=== PATIENT | male | born 1970 | race Caucasian/White ===

== ENCOUNTER 2018-05-16 21:29 | Emergency (ER) | payer MEDICAID ==
[~2018-05-16] VITALS: Ht 185.4 cm; Wt 75.0 kg
--- NOTE | 2018-05-16 22:35 | NUR ---
PT RESTING ON GURNEY. RR EVEN AND UNLABORED. PT ON CONT SPO2 AND BP MONITOR, VSS.
--- NOTE | 2018-05-17 00:56 | NUR ---
NO CHANGE IN PT STATUS. PT RESTING ON GURNEY. RR EVEN AND UNLABORED. PT ON CONT SPO2 AND BP MONITOR
[2018-05-17 01:01] VITALS: BP 100/61
== END 2018-05-17 02:34 | disposition home or self-care (01) ==
LOC: ED 21:43
DX: F10.120 Alcohol abuse with intoxication, uncomplicated (principal)
CPT/HCPCS: 99283

== ENCOUNTER 2018-06-21 13:57 | Inpatient (IN) | payer MEDICAID ==
[~2018-06-21] VITALS: Ht 177.8 cm; Wt 75.8 kg
[~2018-06-21 13:57] MED LIST: ROCURONIUM 10MG/ML,5ML ONE
[2018-06-21 14:24] LABS: BASOPHILS # (AUTO) 0.03 x10^3/uL (0-0.1); BASOPHILS % (AUTO) 1 % (0-1); EOSINOPHILS # (AUTO) 0.17 x10^3/uL (0-0.4); EOSINOPHILS % (AUTO) 4 % (1-7); LYMPHOCYTES # (AUTO) 1.92 x10^3/uL (1-3.4); LYMPHOCYTES % (AUTO) 42 % (22-44); MD NO; MEAN CORPUSCULAR HGB CONC 34.2 g/dL (33.2-36.2); MEAN CORPUSCULAR VOLUME 99.4 fL (81-97); MEAN PLATELET VOLUME 7.4 fL (7.4-10.4); MONOCYTES # (AUTO) 0.52 x10^3/uL (0.2-0.8); MONOCYTES % (AUTO) 11 % (2-9); NEUTROPHILS # (AUTO) 1.97 x10^3/uL (1.8-6.8); NEUTROPHILS % (AUTO) 43 % (42-75); PLATELET COUNT 161 x10^3/uL (130-400); RED BLOOD COUNT 4.54 x10^6/uL (4.38-5.82); RED CELL DISTRIBUTION WIDTH 13.9 % (9.4-14.8)
--- NOTE | 2018-06-21 14:25 | NUR ---
pt bib ems minimally responsive only to pain but able to maintain patent airway. connected to all monitors and etco2. tachy, all other vss. iv established by ems job captain and 1L NS given en route. edmd present upon arrival. 2mg narcan given with no change in responsiveness. nasal airway placed by edmd. all belingings placed in bags, labeled and stored in locker. wallet contained identification card and credit cards, but no crooks. ekg complete. labs drawn. awaiting ct at this time.
[2018-06-21] MEDS ORDERED: SODIUM CHLORIDE 0.9% 1,000ML IVBOLUS ONE (14:30)
[2018-06-21] MEDS ORDERED: NALOXONE 1 MG/ML, 2ML IVPush ONE (14:30)
[2018-06-21 14:33] LABS: INTERNATIONAL NORMALIZED RATIO 1.04 (0.93-1.1); PROTHROMBIN TIME 10.9 Seconds (9.6-11.5)
[2018-06-21 14:35] LABS: ALBUMIN 3.6 g/dL (3.4-5.0); ANION GAP 8 mmol/L (5-15); CALCIUM 7.8 mg/dL (8.5-10.1); CHLORIDE 112 mmol/L (98-107); SALICYLATE LEVEL 3.9 mg/dL (2.8-20.0)
[2018-06-21 14:47] LABS: ALANINE AMINOTRANSFERASE 93 U/L (12-78); ALKALINE PHOSPHATASE 51 U/L (45-117); BILIRUBIN,TOTAL 0.4 mg/dL (0.2-1.0); CREATININE 0.75 mg/dL (0.7-1.3); TOTAL PROTEIN 7.6 g/dL (6.4-8.2)
[2018-06-21 14:50] LABS: ACETAMINOPHEN < 2 mcg/mL (10-30)
[2018-06-21] MEDS ORDERED: MIDAZOLAM 1 MG/ML, 2ML IVPush PRN (15:30)
[2018-06-21] MEDS ORDERED: FENTANYL PF 100 MCG/2ML IVPush PRN ×2 (15:30→17:30)
--- NOTE | 2018-06-21 15:48 | NUR ---
1500 PT MOVED TO TRAUMA ROOM, DR VILLAREAL AT BEDSIDE, 1503 PT GIVEN 100 MG ROCURONIUM. 1508 PT INTUBATED WITH 8.0 ETT 24 AT TEETH. ET 38, 1520 NG PLACED IN LEFT NARE, POSITIVE AUSCULATION, 1525 COULTER CATH PLACED, CLEAR YELLOW URINE. PT ON VENT AC 14 TV 550 PEEP 5 40%. SR PER MONITOR, AUTO BP AND PULSE OX IN PLACE.
--- NOTE | 2018-06-21 15:56 | NUR ---
RT AT BEDSIDE, ETT MOVED TO 21 AT THE LIP.
[2018-06-21] MEDS ORDERED: NALOXONE 1 MG/ML, 2ML ONE (15:58)
[2018-06-21] MEDS ORDERED: ROCURONIUM 10 MG/ML,10ML IVPush ONE (16:00)
--- NOTE | 2018-06-21 16:08 | NUR ---
MELONIE PAWS WARMER IN PLACE.
[2018-06-21 16:12] LABS: AMPHETAMINE SCREEN, URINE Negative (Negative); BARBITURATE SCREEN, URINE Negative (Negative); BENZODIAZEPINE SCREEN, URINE Negative (Negative); CANNABINOID SCREEN, URINE Negative (Negative); COCAINE SCREEN, URINE Negative (Negative); METHADONE SCREEN, URINE Negative (Negative); OPIATE SCREEN, URINE Negative (Negative)
--- NOTE | 2018-06-21 16:16 | NUR ---
PT WITH COPIOUS ORAL SECREATIONS WITH BLOOD NOTED. FREQUENT ORAL SUCTIONING PERFORMED.
[2018-06-21] MEDS ORDERED: MIDAZOLAM 1 MG/ML, 2ML ONE (16:40)
--- NOTE | 2018-06-21 16:43 | NUR ---
PT COUGHING, LIFTING ARMS, PT MEDICATED PER JUN. RT AT BEDSIDE, ETT PLACED AT [address] PER MONITOR, PT DOES NOT FOLLOW COMMANDS, IE: SQUEEZE MY HANDS. NO RESPONSE TO FIRM NAIL BED PRESSURE. PUPILS 5MM SLUGGISH. CONT FREQUENT ORAL SUCTIONING.
[2018-06-21] MEDS ORDERED: FENTANYL PF 100 MCG/2ML ONE (16:50)
--- NOTE | 2018-06-21 17:08 | NUR ---
REPORT CALLED TO PREMA ESCALANTE. POC DISCUSSED.
[2018-06-21 17:15] VITALS: BP 100/68
[2018-06-21] MEDS ORDERED: LACTULOSE 20 GM/30 ML UDC NG PRN (17:30)
[2018-06-21] MEDS ORDERED: GLUCAGON 1 MG IM PRN (17:30)
[2018-06-21] MEDS ORDERED: SENNOSIDES 8.8 MG/5 ML ORAL SOL NG PRN (17:30)
[2018-06-21] MEDS ORDERED: PHARMACY MAY ADJ FOR RENAL FX MC SCH (17:30)
[2018-06-21] MEDS ORDERED: BISACODYL 10 MG SUPP PR PRN (17:30)
[2018-06-21] MEDS ORDERED: SENNA/DOCUSATE TABLET NG PRN (17:30)
[2018-06-21] MEDS ORDERED: DEXTROSE 4 GM TAB.CHEW PO PRN (17:30)
[2018-06-21] MEDS ORDERED: LIDOCAINE-MPF 1%, 2ML ENDO PRN (17:30)
[2018-06-21] MEDS ORDERED: DEXTROSE 50%, 50ML SYRINGE IVPush PRN (17:30)
[2018-06-21] MEDS: PROPOFOL 100 ML IV PRN ×2 (18:13→23:39)
[2018-06-21 18:40] LABS: BASOPHILS # (AUTO) 0.02 x10^3/uL (0-0.1); BASOPHILS % (AUTO) 1 % (0-1); EOSINOPHILS # (AUTO) 0.08 x10^3/uL (0-0.4); EOSINOPHILS % (AUTO) 2 % (1-7); LYMPHOCYTES % (AUTO) 22 % (22-44); MD NO; MEAN CORPUSCULAR HEMOGLOBIN 33.8 pg (27.5-34.5); MEAN CORPUSCULAR VOLUME 99.4 fL (81-97); MEAN PLATELET VOLUME 7.4 fL (7.4-10.4); MONOCYTES # (AUTO) 0.19 x10^3/uL (0.2-0.8); MONOCYTES % (AUTO) 4 % (2-9); NEUTROPHILS # (AUTO) 3.23 x10^3/uL (1.8-6.8); NEUTROPHILS % (AUTO) 71 % (42-75); PLATELET COUNT 164 x10^3/uL (130-400); RED BLOOD COUNT 4.69 x10^6/uL (4.38-5.82); RED CELL DISTRIBUTION WIDTH 14.2 % (9.4-14.8)
[2018-06-21 18:45] LABS: ANION GAP 9 mmol/L (5-15); CALCIUM 7.3 mg/dL (8.5-10.1); CHLORIDE 112 mmol/L (98-107); CREATININE 0.64 mg/dL (0.7-1.3); TRIGLYCERIDES 169 mg/dL (50-200)
[2018-06-21 18:51] LABS: TROPONIN I < 0.015 ng/mL (0.000-0.045)
[2018-06-21] MEDS ORDERED: THIAMINE 200 MG in SODIUM CHLORIDE 0.9% 50 ML IV ONE (19:00)
[2018-06-21] MEDS ORDERED: THIAMINE 200 MG, MVI ADULT 10 ML, FOLIC ACID 1 MG in D5%-0.9% NACL 1,000 ML IV SCH (19:05)
[2018-06-21] MEDS: ALBUTEROL/IPRATROPIUM 2.5MG/0.5MG, 3 ML INLINE SCH ×2 (19:09→22:18)
[2018-06-21] MEDS ORDERED: ENOXAPARIN 40 MG/0.4 ML SQ SCH (19:30)
[2018-06-21] MEDS ORDERED: LORazepam 2 MG/ML, 1ML IVPush PRN (19:30)
[2018-06-21] MEDS ORDERED: ONDANSETRON 2MG/ML, 2ML IVPush PRN (19:30)
[2018-06-21] MEDS: INSULIN LISPRO 100 UNITS/ML, PEN SQ-INSULIN SCH (21:00)
[2018-06-21] MEDS: SODIUM CHLORIDE FLUSH 10ML SYR IVF SCH (21:27)
[2018-06-21 23:36] LABS: TROPONIN I < 0.015 ng/mL (0.000-0.045)
[2018-06-22] MEDS: ALBUTEROL/IPRATROPIUM 2.5MG/0.5MG, 3 ML INLINE SCH (02:38)
[2018-06-22] MEDS: PROPOFOL 100 ML IV PRN (03:47)
[2018-06-22] MEDS ORDERED: THIAMINE 200 MG, MVI ADULT 10 ML, FOLIC ACID 1 MG in D5%-0.9% NACL 1,000 ML IV SCH (04:00)
[2018-06-22 04:31] LABS: BASOPHILS # (AUTO) 0.03 x10^3/uL (0-0.1); BASOPHILS % (AUTO) 1 % (0-1); EOSINOPHILS # (AUTO) 0.02 x10^3/uL (0-0.4); EOSINOPHILS % (AUTO) 1 % (1-7); LYMPHOCYTES # (AUTO) 1.28 x10^3/uL (1-3.4); LYMPHOCYTES % (AUTO) 27 % (22-44); MD NO; MEAN CORPUSCULAR HEMOGLOBIN 33.9 pg (27.5-34.5); MEAN CORPUSCULAR VOLUME 99.5 fL (81-97); MONOCYTES # (AUTO) 0.28 x10^3/uL (0.2-0.8); MONOCYTES % (AUTO) 6 % (2-9); NEUTROPHILS # (AUTO) 3.14 x10^3/uL (1.8-6.8); NEUTROPHILS % (AUTO) 66 % (42-75); PLATELET COUNT 142 x10^3/uL (130-400); RED BLOOD COUNT 4.27 x10^6/uL (4.38-5.82); RED CELL DISTRIBUTION WIDTH 14.2 % (9.4-14.8)
[2018-06-22 04:44] LABS: ALANINE AMINOTRANSFERASE 74 U/L (12-78); ALBUMIN 3.2 g/dL (3.4-5.0); ANION GAP 7 mmol/L (5-15); CALCIUM 7.2 mg/dL (8.5-10.1); CHLORIDE 116 mmol/L (98-107); CREATININE 0.75 mg/dL (0.7-1.3)
[2018-06-22 04:46] LABS: ALKALINE PHOSPHATASE 43 U/L (45-117); BILIRUBIN,TOTAL 0.3 mg/dL (0.2-1.0); TOTAL PROTEIN 6.7 g/dL (6.4-8.2)
[2018-06-22] MEDS: INSULIN LISPRO 100 UNITS/ML, PEN SQ-INSULIN SCH (07:00)
[2018-06-22] MEDS: SODIUM CHLORIDE FLUSH 10ML SYR IVF SCH (09:00)
[2018-06-22] MEDS ORDERED: THIAMINE 100MG TABLET PO SCH (09:00)
[2018-06-22] MEDS ORDERED: PANTOPRAZOLE 40 MG IV IV SCH (09:00)
[2018-06-22 10:47] LABS: MICROSCOPIC NOT IND
[2018-06-22 10:50] LABS: CULTURE INDICATED? NO
== END 2018-06-22 11:41 | disposition home or self-care (01) | DRG 208 ==
LOC: ED 15:08 → SUATTDRO 16:06 → EDIP 16:33 → CSU 17:29
PROVIDERS: ADMIT Internal Medicine; ATTEND Internal Medicine
PROC: 5A1935Z Respiratory Ventilation, Less than 24 Consecutive Hours (ICD-10-PCS; principal; 2018-06-21)
PROC: 0BH17EZ Insertion of Endotracheal Airway into Trachea, Via Natural or Artificial Opening (ICD-10-PCS; 2018-06-21)
DX: J96.00 Acute respiratory failure, unspecified whether with hypoxia or hypercapnia (principal); G93.41 Metabolic encephalopathy; R40.20 Unspecified coma; F10.221 Alcohol dependence with intoxication delirium; E87.1 Hypo-osmolality and hyponatremia; Z99.11 Dependence on respirator [ventilator] status; T68.XXXA Hypothermia, initial encounter; K70.10 Alcoholic hepatitis without ascites; I45.81 Long QT syndrome; J32.0 Chronic maxillary sinusitis; Y90.8 Blood alcohol level of 240 mg/100 ml or more
CPT/HCPCS: 36415; 36600; 51702; 84145; 96361; 99291; J7042; J7620; 70450; 71045; 72125; 80048; 80053; 80307; 80329; 81003; 82140; 82803; 82962; 83605; 83735; 84100; 84478; 84484; 85025; 85610; 87040; 87070; 87077; 87081; 87181; 87184; 87205; 93005; 94002; 94640; 96374; 96375; G0378; J1650; J2250; J2704; J3010; J3411; G0480; J2310; J7030

== ENCOUNTER 2018-07-16 12:54 | Emergency (ER) | payer MEDICAID ==
[~2018-07-16] VITALS: Ht 180.3 cm; Wt 75.0 kg
[2018-07-16] MEDS ORDERED: SODIUM CHLORIDE 0.9% 1,000 ML IV ONE (13:22)
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
[2018-07-16 13:50] LABS: BASOPHILS # (AUTO) 0.05 x10^3/uL (0-0.1); BASOPHILS % (AUTO) 1 % (0-1); EOSINOPHILS # (AUTO) 0.13 x10^3/uL (0-0.4); EOSINOPHILS % (AUTO) 2 % (1-7); LYMPHOCYTES # (AUTO) 1.55 x10^3/uL (1-3.4); LYMPHOCYTES % (AUTO) 28 % (22-44); MD NO; MEAN CORPUSCULAR HEMOGLOBIN 33.5 pg (27.5-34.5); MEAN CORPUSCULAR HGB CONC 34.1 g/dL (33.2-36.2); MEAN CORPUSCULAR VOLUME 98.5 fL (81-97); MEAN PLATELET VOLUME 9.3 fL (7.4-10.4); MONOCYTES # (AUTO) 0.18 x10^3/uL (0.2-0.8); MONOCYTES % (AUTO) 3 % (2-9); NEUTROPHILS # (AUTO) 3.58 x10^3/uL (1.8-6.8); NEUTROPHILS % (AUTO) 65 % (42-75); PLATELET COUNT 160 x10^3/uL (130-400); RED BLOOD COUNT 5.21 x10^6/uL (4.38-5.82); RED CELL DISTRIBUTION WIDTH 13.3 % (9.4-14.8)
[2018-07-16 14:04] LABS: ALBUMIN 3.9 g/dL (3.4-5.0); ANION GAP 7 mmol/L (5-15); CHLORIDE 110 mmol/L (98-107)
[2018-07-16 14:10] LABS: ALANINE AMINOTRANSFERASE 43 U/L (12-78); ALKALINE PHOSPHATASE 63 U/L (45-117); BILIRUBIN,TOTAL 0.3 mg/dL (0.2-1.0); CREATININE 0.87 mg/dL (0.7-1.3); SALICYLATE LEVEL 3.8 mg/dL (2.8-20.0); TOTAL PROTEIN 7.9 g/dL (6.4-8.2)
[2018-07-16 14:11] LABS: ACETAMINOPHEN < 2 mcg/mL (10-30)
--- NOTE | 2018-07-16 15:30 | NUR ---
PT SLEEPING AWAKES TO PAINFUL STIMULI, CONT TO MONITOR O2 AND SUPPLMENT OXYGEN NEEDED
--- NOTE | 2018-07-16 16:57 | NUR ---
PT AWAKES TO VOICE STILL SEDATED BUT MORE AROUSABLE MOVED TO RM 17, REPORT GIVEN TO DENISE
--- NOTE | 2018-07-16 17:45 | NUR ---
REPORT RECEIVED FROM RN JACK, PT SLEEPING ON GURNEY, RESPS EVEN AND UNLABORED. VSS.
--- NOTE | 2018-07-16 18:23 | NUR ---
PT AWAKENS TO VOICE, SPEECH SLURRED. PT ORIENTED TO SELF. RESPS EVEN AND UNLABORED. 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 BED LOCKED AND IN LOWEST POSITION, CALL LIGHT IN REACH. PT INSTRUCTED REGARDING CALL LIGHT USE, PT INSTRUCTED NOT TO GET OUT OF BED. URINAL AT BEDSIDE.
--- NOTE | 2018-07-16 19:02 | NUR ---
REPORT TO BORIS CABRALES AND BORIS HOANG AT BEDSIDE. PT HAD URINATED ON FLOOR, DESPITE URINAL GIVEN. ALL MONITORS TAKEN OFF BY PT, REPLACED. PT AWAKE, ALERT, RESPS EVEN AND UNLABORED.
--- NOTE | 2018-07-16 19:46 | NUR ---
PT SLEEPING. VSS.
--- NOTE | 2018-07-16 20:59 | NUR ---
PT AROUSES TO VOICE. ALERT TO SELF. VSS.
[2018-07-17 00:12] VITALS: BP 122/75
== END 2018-07-17 01:15 | disposition home or self-care (01) ==
LOC: ED 14:18
DX: F10.220 Alcohol dependence with intoxication, uncomplicated (principal); G92 Toxic encephalopathy; R41.82 Altered mental status, unspecified
CPT/HCPCS: 36415; 70450; 80053; 80307; 80329; 82140; 83735; 85025; 93005; 96360; 96361; 99291; J7030; G0480

== ENCOUNTER 2018-07-26 00:03 | Emergency (ER) | payer MEDICAID ==
[~2018-07-26] VITALS: Ht 180.3 cm; Wt 75.0 kg
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
--- NOTE | 2018-07-26 00:56 | NUR ---
PT TO CT
[2018-07-26 01:44] VITALS: BP 108/58
--- NOTE | 2018-07-26 01:45 | NUR ---
PT RESTING CALMLY, MONITORS IN PLACE,DENIES NEEDS, CALL LIGHT WITHIN REACH. CHART UP FOR RECHECK
== END 2018-07-26 02:20 | disposition home or self-care (01) ==
LOC: ED 00:33
DX: G89.11 Acute pain due to trauma (principal); R51 Headache; F10.10 Alcohol abuse, uncomplicated; Z72.9 Problem related to lifestyle, unspecified; F17.210 Nicotine dependence, cigarettes, uncomplicated; Y04.8XXA Assault by other bodily force, initial encounter; Y93.89 Activity, other specified; Y92.410 Unspecified street and highway as the place of occurrence of the external cause; Y99.8 Other external cause status
CPT/HCPCS: 70450; 70486; 99284

== ENCOUNTER 2018-10-20 01:10 | Emergency (ER) | payer SELFPAY ==
[~2018-10-20] VITALS: Ht 180.3 cm; Wt 73.9 kg
--- NOTE | 2018-10-20 01:33 | NUR ---
DR DAY AT BEDSIDE. PT ASSESSMENT POC, DISCUSSED AND QUESTIONS ANSWERED.
[2018-10-20] MEDS ORDERED: FAMOTIDINE 20 MG TABLET ONE (01:42)
[2018-10-20] MEDS ORDERED: NAPROXEN 500 MG TABLET ONE (01:43)
[2018-10-20 01:56] VITALS: BP 105/62
[2018-10-20] MEDS ORDERED: NAPROXEN 500 MG TABLET PO ONE (02:00)
[2018-10-20] MEDS ORDERED: FAMOTIDINE 20 MG TABLET PO ONE (02:00)
--- NOTE | 2018-10-20 02:07 | NUR ---
Patient/Caregiver given discharge instructions and they have confirmed that they understand the instructions. Patient ambulatory with steady gait. PAIN 09/14
== END 2018-10-20 02:08 | disposition home or self-care (01) ==
LOC: ED 01:38
DX: M70.22 Olecranon bursitis, left elbow (principal); F17.200 Nicotine dependence, unspecified, uncomplicated; R07.81 Pleurodynia; Z72.89 Other problems related to lifestyle
CPT/HCPCS: 99283

== ENCOUNTER 2018-10-31 18:55 | Inpatient (IN) | payer MEDICAID ==
[~2018-10-31] VITALS: Ht 177.8 cm; Wt 73.5 kg
[2018-11-20 15:23] VITALS: BP 119/78
== END 2018-11-20 19:30 | disposition home or self-care (01) | DRG 207 ==
LOC: EDBD 18:55 → MERGE 18:55 → ED 21:50 → EDIP 21:51 → CCU 22:44 → 4EST 11-13 16:08
PROVIDERS: ADMIT Family Medicine; ATTEND Internal Medicine
PROC: 5A1955Z Respiratory Ventilation, Greater than 96 Consecutive Hours (ICD-10-PCS; 2018-10-31)
PROC: 04HY32Z Insertion of Monitoring Device into Lower Artery, Percutaneous Approach (ICD-10-PCS; 2018-10-31)
PROC: 0BH17EZ Insertion of Endotracheal Airway into Trachea, Via Natural or Artificial Opening (ICD-10-PCS; 2018-10-31)
PROC: 5A1D70Z Performance of Urinary Filtration, Intermittent, Less than 6 Hours Per Day (ICD-10-PCS; principal; 2018-11-04)
PROC: 02HV33Z Insertion of Infusion Device into Superior Vena Cava, Percutaneous Approach (ICD-10-PCS; 2018-11-04)
PROC: B548ZZA Ultrasonography of Superior Vena Cava, Guidance (ICD-10-PCS; 2018-11-04)
PROC: 5A1D70Z Performance of Urinary Filtration, Intermittent, Less than 6 Hours Per Day (ICD-10-PCS; 2018-11-05)
PROC: 5A1D70Z Performance of Urinary Filtration, Intermittent, Less than 6 Hours Per Day (ICD-10-PCS; 2018-11-06)
PROC: 5A1D70Z Performance of Urinary Filtration, Intermittent, Less than 6 Hours Per Day (ICD-10-PCS; 2018-11-09)
PROC: 5A1D70Z Performance of Urinary Filtration, Intermittent, Less than 6 Hours Per Day (ICD-10-PCS; 2018-11-10)
PROC: 5A1D70Z Performance of Urinary Filtration, Intermittent, Less than 6 Hours Per Day (ICD-10-PCS; 2018-11-11)
PROC: 5A1D70Z Performance of Urinary Filtration, Intermittent, Less than 6 Hours Per Day (ICD-10-PCS; 2018-11-13)
PROC: 5A1D70Z Performance of Urinary Filtration, Intermittent, Less than 6 Hours Per Day (ICD-10-PCS; 2018-11-14)
PROC: 5A1D70Z Performance of Urinary Filtration, Intermittent, Less than 6 Hours Per Day (ICD-10-PCS; 2018-11-16)
PROC: 5A1D70Z Performance of Urinary Filtration, Intermittent, Less than 6 Hours Per Day (ICD-10-PCS; 2018-11-17)
PROC: 02HV33Z Insertion of Infusion Device into Superior Vena Cava, Percutaneous Approach (ICD-10-PCS; 2018-11-18)
PROC: B5181ZA Fluoroscopy of Superior Vena Cava using Low Osmolar Contrast, Guidance (ICD-10-PCS; 2018-11-18)
PROC: B548ZZA Ultrasonography of Superior Vena Cava, Guidance (ICD-10-PCS; 2018-11-18)
PROC: 5A1D70Z Performance of Urinary Filtration, Intermittent, Less than 6 Hours Per Day (ICD-10-PCS; 2018-11-19)
PROC: 5A12012 Performance of Cardiac Output, Single, Manual (ICD-10-PCS; 2018-11-19)
DX: J96.01 Acute respiratory failure with hypoxia (principal); G92 Toxic encephalopathy; I46.9 Cardiac arrest, cause unspecified; I50.33 Acute on chronic diastolic (congestive) heart failure; J69.0 Pneumonitis due to inhalation of food and vomit; K72.00 Acute and subacute hepatic failure without coma; N17.0 Acute kidney failure with tubular necrosis; D68.69 Other thrombophilia; E87.1 Hypo-osmolality and hyponatremia; E87.4 Mixed disorder of acid-base balance; F10.239 Alcohol dependence with withdrawal, unspecified; J98.11 Atelectasis; M62.82 Rhabdomyolysis; R57.9 Shock, unspecified; Z99.11 Dependence on respirator [ventilator] status; B88.8 Other specified infestations; D64.9 Anemia, unspecified; D69.6 Thrombocytopenia, unspecified; E16.2 Hypoglycemia, unspecified; E83.51 Hypocalcemia; E87.5 Hyperkalemia; F10.229 Alcohol dependence with intoxication, unspecified; I48.0 Paroxysmal atrial fibrillation; N05.9 Unspecified nephritic syndrome with unspecified morphologic changes; T50.905A Adverse effect of unspecified drugs, medicaments and biological substances, initial encounter; Y90.8 Blood alcohol level of 240 mg/100 ml or more; Z51.5 Encounter for palliative care; Z72.0 Tobacco use; Z79.01 Long term (current) use of anticoagulants; Z82.3 Family history of stroke; Z82.49 Family history of ischemic heart disease and other diseases of the circulatory system; F10.26 Alcohol dependence with alcohol-induced persisting amnestic disorder
CPT/HCPCS: 31500; 36415; 36556; 36600; 77001; 93017; 99291; 99292; J3490; 36558; 70450; 70551; 71045; 72125; 76937; 78452; 80048; 80053; 80076; 80307; 82040; 82330; 82550; 82803; 82962; 83735; 84100; 84132; 84439; 84443; 84478; 84484; 85025; 85610; 85730; 86022; 86480; 86705; 86706; 86803; 87040; 87070; 87081; 87205; 87340; 90935; 93005; 93306; 94002; 94003; 94150; 99156; 99157; C1760; G0378; J0295; J0610; J0690; J1265; J1644; J1650; J1815; J1940; J2250; J2543; J2704; J2785; J3010; J3360; J3411; J3475; J3480; J7070; 92523-GN; A9502; C1750; C1751; C9113; C9898; J0282; J0330; J1642; J2060; J2310; J2370; J7030; J7040; J7050; J7060

== ENCOUNTER 2019-09-08 12:33 | Emergency (ER) | payer MEDICAID ==
[~2019-09-08] VITALS: Ht 175.3 cm; Wt 75.0 kg
[2019-09-08 12:42] VITALS: BP 130/77
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
--- NOTE | 2019-09-08 13:11 | NUR ---
PT ATTEMPTING TO GET OUT OF BED. PT FOUND SITTING ON EDGE OF BED. PT WALTER UP WITH A SSISTANCE AND IS VERY UNSTEADY. PT BEING VERBALLY ABUSIVE TO THIS RN. SECURITY IS CALLED FOR ASSISTANCE. AT THIS TIME PT AGREES TO LAY IN BED. CHARGE NURSE MADE AWARE. TECH AT BEDSIDE. Addendum: 09/08/19 at 1315 by MILLIE PT ATTEMPTING TO GET OUT OF BED. PT FOUND SITTING ON EDGE OF BED. PT STOOD UP WITH ASSISTANCE AND IS VERY UNSTEADY. PT BEING VERBALLY ABUSIVE TO THIS RN. SECURITY IS CALLED FOR ASSISTANCE. AT THIS TIME PT AGREES TO LAY IN BED. CHARGE NURSE MADE AWARE. TECH AT BEDSIDE.
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
--- NOTE | 2019-09-08 13:34 | NUR ---
REPORT TO LILI ESCALANTE
--- NOTE | 2019-09-08 13:41 | NUR ---
BREAK RN: PT MOVED TO ROOM 1 FOR SAFETY. SITTER AT BEDSIDE.
--- NOTE | 2019-09-08 14:05 | NUR ---
MULTIPLE ATTEMPTS TO KEEP PT IN BED HAVE FAILED. PT HAS THREATENED MULTIPLE STAFF MEMBERS. SECURITY HAS BEEN CALLED PT IS STILL UNABLE TO AMBULATE SAFELY AND IS MAKING MULTIPLE ATTEMPTS TO GET UP AND PLACING HANDS ON STAFF. MD MADE AWARE OF SITUATION AND WOULD LIKE PT RESTRAINED FOR SAFTEY OF PT AND STAFF.
--- NOTE | 2019-09-08 14:20 | NUR ---
REPORT RECEIVED FROM LILI ESCALANTE. PT CURRENTLY IN 4 POINT RESTRAINTS FOR SAFETY. PT RESP EVEN AND UNLABORED, YELLING PROFANITIES. MAE. WILL CONTINUE TO MONITOR.
--- NOTE | 2019-09-08 15:07 | NUR ---
PT RESTING ON GURNEY IN 4 POINT RESTRAINTS W/ SITTER OUTSIDE ROOM. RESP EVEN AND UNLABORED, NADN. WILL CONTINUE TO MONITOR.
--- NOTE | 2019-09-08 16:00 | NUR ---
PT RESTING ON GURNEY IN 4 POINT RESTRAINTS W/ SITTER OUTSIDE ROOM. RESP EVEN AND UNLABORED, NADN. WILL CONTINUE TO MONITOR.
--- NOTE | 2019-09-08 16:03 | NUR ---
PT OFFERED URINAL AND REFUSED.
--- NOTE | 2019-09-08 16:52 | NUR ---
1 RESTRAINT REMOVED SO PT MAY USE URINAL. PT FOUND TO BE SMOKING CIGGARETTE IN ROOM. RESTRAINTS REMOVED TO ASSESS PATIENTS GAIT. PT AMBULATORY W/ A STEADY GAIT.
== END 2019-09-08 16:54 ==
LOC: ED 16:48
DX: F10.120 Alcohol abuse with intoxication, uncomplicated (principal); Y90.9 Presence of alcohol in blood, level not specified
CPT/HCPCS: 99283

== ENCOUNTER 2019-09-26 14:40 | Emergency (ER) | payer MEDICAID ==
[~2019-09-26] VITALS: Ht 180.3 cm; Wt 75.0 kg
[2019-09-26 14:48] VITALS: BP 114/80
--- NOTE | 2019-09-26 16:21 | NUR ---
MICROBIOLOGICAL LABORATORY TECHNICIAN AND PROVIDER AT BEDSIDE. PT IS COMBATIVE AND NOT FOLLOWING DIRECTIONS. SECURITY TO BE NOTIFIED IF NEEDED.
--- NOTE | 2019-09-26 16:39 | NUR ---
PT BANGING ON RM GLASS YELLING "LET ME OUT OF HERE". SECURITY CALLED AND PT ESCORTED OUTSIDE AMA.
== END 2019-09-26 16:42 | disposition left against medical advice (07) ==
LOC: ED 15:20
DX: F10.20 Alcohol dependence, uncomplicated (principal); Z72.9 Problem related to lifestyle, unspecified; Y90.9 Presence of alcohol in blood, level not specified
CPT/HCPCS: 99283

== ENCOUNTER 2020-03-21 19:34 | Emergency (ER) | payer MEDICAID ==
--- NOTE | 2020-03-21 20:22 | NUR ---
Unable to obtain vitals for triage, patient uncooperative. Patient ambulated from w/c to strecher with steady gait and without difficulty. Provider aware that patient is being uncooperative, security called
== END 2020-03-21 20:27 | disposition left against medical advice (07) ==
LOC: ED 20:04
DX: F10.10 Alcohol abuse, uncomplicated (principal); Z53.21 Procedure and treatment not carried out due to patient leaving prior to being seen by health care provider; Y90.0 Blood alcohol level of less than 20 mg/100 ml

== ENCOUNTER 2020-06-12 19:10 | Emergency (ER) | payer MEDICAID ==
[~2020-06-12] VITALS: Ht 180.3 cm; Wt 75.0 kg
--- NOTE | 2020-06-12 19:15 | NUR ---
Dr. Ureña at bedside, RN at bedside. Pt was checking in to [facility] today, they sent him here via [facility] for medical clearance. Pt denies any n/v. Reports his last drink was last night at about 1700, usually a daily drinker, checked in to [facility] for detox. Hx ME, back surgery, hernia surgery, acute kidney failure.
--- NOTE | 2020-06-12 20:26 | NUR ---
Lab at bedside.
[2020-06-12] MEDS ORDERED: CHLORDIAZEPOXIDE 25 MG CAPSULE PO ONE (20:30)
[2020-06-12 20:43] LABS: BASOPHILS % (AUTO) 1 % (0-1); EOSINOPHILS % (AUTO) 6 % (1-7); LYMPHOCYTES % (AUTO) 30 % (22-44); MEAN CORPUSCULAR HEMOGLOBIN 35.4 pg (27.5-34.5); MEAN CORPUSCULAR HGB CONC 34.3 g/dL (33.2-36.2); MEAN PLATELET VOLUME 8.1 fL (7.4-10.4); MONOCYTES % (AUTO) 11 % (2-9); NEUTROPHILS % (AUTO) 52 % (42-75); PLATELET COUNT 126 x10^3/uL (130-400); RED BLOOD COUNT 3.59 x10^6/uL (4.38-5.82); RED CELL DISTRIBUTION WIDTH 13.3 % (9.4-14.8)
[2020-06-12 20:45] LABS: MD NO
[2020-06-12 20:48] LABS: ALANINE AMINOTRANSFERASE 104 U/L (12-78); ALBUMIN 3.4 g/dL (3.4-5.0); ANION GAP 6 mmol/L (5-15); CALCIUM 8.3 mg/dL (8.5-10.1); CHLORIDE 107 mmol/L (98-107); CREATININE 1.13 mg/dL (0.7-1.3)
[2020-06-12 20:50] LABS: ALKALINE PHOSPHATASE 57 U/L (45-117); BILIRUBIN,TOTAL 0.9 mg/dL (0.2-1.0); TOTAL PROTEIN 7.1 g/dL (6.4-8.2)
[2020-06-12] MEDS ORDERED: CHLORDIAZEPOXIDE 25 MG CAPSULE ONE (21:13)
[2020-06-12 21:15] VITALS: BP 125/81
--- NOTE | 2020-06-12 21:22 | NUR ---
Called [facility] and gave them report on pt and lab findings per pt permission. [facility] requesting pt's documents be faxed over to them.
--- NOTE | 2020-06-12 21:45 | NUR ---
Results faxed to [facility]. Pt agrees with and understands discharge plan and instructions. Provided cab voucher to get back to [facility], [facility] approved that pt can take taxi.
== END 2020-06-12 21:49 | disposition home or self-care (01) ==
LOC: ED 19:44
DX: F10.139 Alcohol abuse with withdrawal, unspecified (principal); R25.1 Tremor, unspecified; F17.200 Nicotine dependence, unspecified, uncomplicated; I25.2 Old myocardial infarction; Y90.0 Blood alcohol level of less than 20 mg/100 ml; Z86.73 Personal history of transient ischemic attack (TIA), and cerebral infarction without residual deficits
CPT/HCPCS: 36415; 80053; 80320; 85025; 99283; G0480

== ENCOUNTER 2020-06-18 15:28 | Emergency (ER) | payer MEDICAID ==
[~2020-06-18] VITALS: Ht 180.3 cm; Wt 70.3 kg
[2020-06-18 15:32] VITALS: BP 115/82
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
--- NOTE | 2020-06-18 15:45 | NUR ---
pt has removed monitoring equipment and refuses VS
--- NOTE | 2020-06-18 16:00 | NUR ---
security at bedside. pt continues to swear at staff. pt states that he wants to smoke. pt has been told multiple times that this is a non-smoking facility. pt is uncooperative and has made repeated attempts to get up. pt is unable to walk without assistance at this time. pt standing at bedside to urinate upon his insistance pt continues to swear and states that he is a [place] assissin. no family at bedside
--- NOTE | 2020-06-18 16:21 | NUR ---
PO snacks and water given. pt continues to swear at staff. pt is uncooperative with wearing his mask.
--- NOTE | 2020-06-18 16:25 | NUR ---
meal tray ordered. Steven at bedside for further eval pt has had no difficulty breathing speaking or swallowing. pt continues to yell and trinityar at staff
--- NOTE | 2020-06-18 17:09 | NUR ---
pt has ambulated down the hallway to the BR unassisted. well tolerated. pt is in no resp. distress. pt speaking full sentences without difficulty. pt making repeated requests to go outside to smoke pt continues to swear at staff
--- NOTE | 2020-06-18 17:10 | NUR ---
meal tray delivered
--- NOTE | 2020-06-18 17:23 | NUR ---
pt has been evaluated by Steven CORTES after ambulation and agrees to D/C. states that he wants to finish his meal
== END 2020-06-18 18:04 | disposition home or self-care (01) ==
LOC: ED 15:47
DX: F10.229 Alcohol dependence with intoxication, unspecified (principal); Y90.9 Presence of alcohol in blood, level not specified
CPT/HCPCS: 99283